=== PATIENT | female | born 1950 | race Caucasian/White ===

== ENCOUNTER 2017-04-10 16:05 | Outpatient (CLI) | payer MEDICARE ==
[2017-04-10 16:53] LABS: ALT (SGPT) 9 U/L (8-55); AST (SGOT) 8 U/L (5-34); Albumin 3.8 g/dL (3.4-4.8); Alkaline Phosphatase 116 U/L (40-150); Anion Gap 16 mmol/L (10-20); BUN (Urea Nitrogen) 21 mg/dL (9.8-20.1); Bilirubin, Total 0.3 mg/dL (0.2-1.2); Calc. Creatinine Clearance 0 mL/min (70-130); Calcium 9.7 mg/dL (7.8-10.44); Carbon Dioxide 29 mmol/L (23-31); Chloride 100 mmol/L (98-107); Estimated GFR-MDRD 73; Glucose 100 mg/dL (80-115); Potassium 4.1 mmol/L (3.5-5.1); Protein, Total 7.8 g/dL (6.0-8.3); Sodium 141 mmol/L (136-145)
--- NOTE | 2017-04-10 17:00 | CT ---
LUMBAR SPINE CT SCAN WITHOUT IV CONTRAST 04/10/17 HISTORY: 67-year-old female with severe low back pain radiating to both legs. There is note of an approximately 5.5 cm diameter slightly hyperdense mass involving the right kidne y, I favor this being a solid mass with a much less likely possibility that this could represent a m inimally hemorrhagic cyst. This certainly needs to be further evaluated to include an abdomen and pe lvic CT scan with and without IV contrast with renal mass protocol. There is no evidence of acute fracture or dislocation of the lumbar spine. Minute disc bulging at L1-L2 with ligamentum and facet hypertrophic changes without significant cent ral canal or lateral recess or foraminal stenosis. L2-L3: Minute disc bulging and ligament and facet hypertrophic changes without significant central c anal, lateral recess, or foraminal stenosis. L3-L4: Diffuse disc osteophytosis with ligament and facet hypertrophic changes with mild lateral rec ess stenosis without significant foraminal stenosis. L4-L5: Diffuse disc osteophytosis with mild to moderate lateral recess stenosis and moderate bilater al foraminal stenosis, worse on the right side. L5-S1: Mild bilateral foraminal stenosis. IMPRESSION: Variable severity, mostly mild to moderate canal, lateral recess, and foraminal stenosis most marked at L4-L5 followed by L3-L4 and L5-S1. No acute lumbar spine fracture. Large right renal mass concerning for malignancy. Followup additional imaging as above. Code T POS: ESTEFANY
[2017-04-10 22:19] LABS: Bilirubin Negative (Negative); Blood, Urine Trace (Negative); Clarity Clear (Clear); Glucose, Urine (Dipstick) Negative (Negative); Leukocyte Negative (Negative); Nitrite Negative (Negative); Protein, Urine (Dipstick) Negative (Neg-Trace)
[2017-04-10 22:34] LABS: #Basophils 0.1 thou/uL (0.0-0.2); #Eosinphils 0.1 thou/uL (0.0-0.7); #Lymphocytes 1.7 thou/uL (1.20-3.40); #Monocytes 0.5 thou/uL (0.11-0.59); #Neutrophils 5.4 thou/uL (1.40-6.50); %Basophils 0.8 % (0.0-1.0); %Eosinophils 0.8 % (0.0-10.0); %Lymphocytes 21.8 % (21.0-51.0); %Neutrophils 70.7 % (42.0-75.0); Hemoglobin 10.1 g/dL (12.0-16.0); Hypochromia MODERATE=16-30 cells (100X) (0-5/hpf); MDiff Complete? YES; Mean Corpuscular HGB CONC 29.8 g/dL (32.0-36.0); Mean Corpuscular Hemoglobin 21.6 pg (27.0-31.0); Mean Corpuscular Volume 72.5 fl (81.0-99.0); Mean Platelet Volume 4.7 fL (7.4-10.4); Microcytosis SLIGHT = 6-15 cells (100X) (0-5/hpf); PLT Morphology Comment Appears Adequate; Platelet Count 457 thou/uL (130-400); RBC Distribution Width 15.3 % (11.5-14.5); Red Blood Cell (RBC) Count 4.69 mill/uL (4.20-5.40); White Blood Cell (WBC) Count 7.6 thou/uL (4.8-10.8)
[2017-04-10 22:40] LABS: Bacteria/HPF None Seen HPF (None Seen); RBC/HPF 0-3 HPF (0-3); Squamous Epithelial None Seen HPF (0-3); WBC/HPF 0-3 HPF (0-3)
== END 2017-04-10 16:06 | disposition home or self-care (01) ==
LOC: NAV LAB 16:05
PROVIDERS: ATTEND Internal Medicine
DX: M54.41 Lumbago with sciatica, right side (principal); N28.89 Other specified disorders of kidney and ureter
CPT/HCPCS: 36415; 72131; 80053; 81003; 81015; 84443; 85025

== ENCOUNTER 2017-04-14 08:49 | Outpatient (CLI) | payer MEDICARE ==
--- NOTE | 2017-04-14 11:48 | CT ---
CT ABDOMEN AND PELVIS WITH AND WITHOUT IV CONTRAST: HISTORY: Right renal mass. FINDINGS: The lung bases are clear. Cysts are apparent within the liver and left kidney. At the posterior co rtex of the right kidney, a heterogeneously enhancing lobular mass is 6.7 cm length x 5.7 x 5.5 cm w idth in depth. Filling defect from the tumor extends into the right superior pole renal vein but no t into the main renal vein. No enlarged lymph nodes are apparent within the retroperitoneum. Calci fications evident within the arterial structures. There are prominent degenerative changes of the l umbar spine. Urinary bladder is incompletely distended. IMPRESSION: 1. Right renal cell carcinoma with extension into the upper pole right renal vein. 2. Hepatic and left renal cysts. 3. Atherosclerosis. POS: ESTEFANY
== END 2017-04-14 08:50 | disposition home or self-care (01) ==
LOC: NAV CT 08:49
PROVIDERS: ATTEND Internal Medicine
DX: N28.89 Other specified disorders of kidney and ureter (principal); C64.1 Malignant neoplasm of right kidney, except renal pelvis; K76.89 Other specified diseases of liver; N28.1 Cyst of kidney, acquired; I70.90 Unspecified atherosclerosis
CPT/HCPCS: 74178